=== PATIENT | female | born 1945 | race Caucasian/White ===

== ENCOUNTER 2023-05-31 09:59 | Outpatient (CLI) | payer OTHER ==
[2023-05-31 13:34] LABS: Hematocrit 40.6 % (34.9-44.5); Hemoglobin 13.3 g/dL (12.0-15.5); Mean Corpuscular HGB CONC 32.8 g/dL (32.0-36.0); Mean Corpuscular Volume 91.4 fl (81.6-98.3); Mean Platelet Volume 10.2 fl (7.4-10.4); Platelet Count 261 10x3/uL (150-450); RBC Distribution Width 13.3 % (11.5-14.5); Red Blood Cell (RBC) Count 4.44 10x6/uL (3.90-5.03); White Blood Cell (WBC) Count 9.9 10x3/uL (3.5-10.5)
[2023-05-31 13:48] LABS: Anion Gap 13 mmol/L (10-20); BUN (Urea Nitrogen) 17 mg/dL (9.8-20.1); Calc. Creatinine Clearance 0 mL/min (70-130); Calcium 9.7 mg/dL (7.8-10.44); Carbon Dioxide 24 mmol/L (23-31); Chloride 107 mmol/L (98-107); Estimated GFR 88; Glucose 76 mg/dL (83-110); Potassium 4.6 mmol/L (3.5-5.1); Sodium 139 mmol/L (136-145)
== END 2023-05-31 10:00 | disposition home or self-care (01) ==
LOC: CSHLAB 09:59
PROVIDERS: ATTEND Otolaryngology Plastic Surgery within the Head & Neck
DX: Z01.818 Encounter for other preprocedural examination (principal); E07.9 Disorder of thyroid, unspecified; E04.9 Nontoxic goiter, unspecified; E05.00 Thyrotoxicosis with diffuse goiter without thyrotoxic crisis or storm
CPT/HCPCS: 80048; 85027; 93005; 93010

== ENCOUNTER 2024-03-01 10:19 | Outpatient (CLI) | payer OTHER ==
[2024-03-01] MEDS ORDERED: Iopamidol 300 61% 100 ML VIAL FS ONE (15:16)
== END 2024-03-01 10:20 | disposition home or self-care (01) ==
LOC: CSHCT 10:19
PROVIDERS: ATTEND Internal Medicine Gastroenterology
DX: R93.5 Abnormal findings on diagnostic imaging of other abdominal regions, including retroperitoneum (principal); R10.12 Left upper quadrant pain; R09.A2 Foreign body sensation, throat
CPT/HCPCS: 36415; 74177; 82565; Q9967

== ENCOUNTER 2024-03-28 13:30 | Outpatient (CLI) | payer OTHER | END 2024-03-28 13:31 | disposition home or self-care (01) | LOC: CSHCT 13:30 | PROVIDERS: ATTEND Physician Assistant | DX: J43.9 Emphysema, unspecified (principal); R91.1 Solitary pulmonary nodule | CPT/HCPCS: 71250 ==

== ENCOUNTER 2025-04-08 14:08 | Outpatient (CLI) | payer OTHER | END 2025-04-08 14:09 | disposition home or self-care (01) | LOC: CSHCT 14:08 | PROVIDERS: ATTEND Physician Assistant | DX: R91.1 Solitary pulmonary nodule (principal) | CPT/HCPCS: 71250 ==